=== PATIENT | male | born 1990 | race Caucasian/White ===

== ENCOUNTER 2024-06-18 19:49 | Emergency (ER) | payer SELFPAY ==
[~2024-06-18] VITALS: Ht 180.3 cm; Wt 86.0 kg
[2024-06-19] MEDS: LIDOCAINE 2% MDV 20ML VIAL SC ONE (04:15)
[2024-06-19] MEDS ORDERED: DOXY-441 PO (05:02)
[2024-06-19] MEDS: DOXYCYCLINE HYCLATE 100MG TABLET PO ONE (05:12)
[2024-06-19 05:15] VITALS: BP 143/78; TEMP 97.5; O2SAT 98
== END 2024-06-19 05:15 | disposition home or self-care (01) ==
LOC: M ED 19:49
DX: L02.11 Cutaneous abscess of neck (principal); F17.200 Nicotine dependence, unspecified, uncomplicated; Z88.1 Allergy status to other antibiotic agents